=== PATIENT | male | born 1935 | race Caucasian/White ===

== ENCOUNTER 2020-07-09 16:35 | Outpatient (CLI) | payer MEDICARE, SELFPAY | END 2020-07-09 16:36 | disposition home or self-care (01) | PROVIDERS: Visit Provider Specialist | DX: C44.01 Basal cell carcinoma of skin of lip (principal) | CPT/HCPCS: 88305 ==

== ENCOUNTER 2020-11-05 11:59 | Outpatient (CLI) | payer MEDICARE, SELFPAY | END 2020-11-05 12:00 | disposition home or self-care (01) | LOC: CHSLAB 12:03 | PROVIDERS: PCP Specialist; Visit Provider Specialist | DX: C44.41 Basal cell carcinoma of skin of scalp and neck (principal); C44.519 Basal cell carcinoma of skin of other part of trunk; L82.1 Other seborrheic keratosis | CPT/HCPCS: 88305 ==

== ENCOUNTER 2021-10-14 15:48 | Outpatient (CLI) | payer MEDICARE, SELFPAY | END 2021-10-14 15:49 | disposition home or self-care (01) | LOC: CHSLAB 15:51 | PROVIDERS: PCP Internal Medicine; Visit Provider Specialist | DX: C44.519 Basal cell carcinoma of skin of other part of trunk (principal); C44.321 Squamous cell carcinoma of skin of nose | CPT/HCPCS: 88305 ==

== ENCOUNTER 2024-09-12 12:29 | Outpatient (CLI) | payer MEDICARE, SELFPAY ==
--- OUTSIDE RECORDS SUMMARY | 2024-09-12 12:38 | XMS_ITS ---
Author Organization Unknown Address [address] [place] [phone] Phone Care Team Providers Care Journal Box Inspector Name Role Phone BERNADINE MITCHELL Cornell Attending Unavailable Immunization Immunization Date Status Additional Notes Code Code System pneumococcal polysaccharide PPV23 02/13/2017 Completed 33 CVX Tdap 04/05/2015 Completed 115 CVX Pneumococcal conjugate PCV 13 02/05/2016 Completed 133 CVX Influenza, high-dose, trivalent, PF 02/05/2016 Completed 135 CVX Influenza, high-dose, trivalent, PF 02/13/2017 Completed 135 CVX Influenza, high-dose, trivalent, PF 03/15/2018 Completed 135 CVX Influenza, high-dose, trivalent, PF 04/15/2019 Completed 135 CVX Influenza, split virus, trivalent, preservative 02/16/2013 Completed 141 CVX Influenza, split virus, trivalent, preservative 01/14/2014 Completed 141 CVX Influenza, split virus, trivalent, preservative 02/14/2015 Completed 141 CVX Influenza, split virus, quadrivalent, PF 05/23/2021 Completed 150 CVX Influenza, recombinant, quadrivalent, PF 03/14/2023 Completed 185 CVX Influenza, high-dose, quadrivalent, PF 03/03/2020 Completed 197 CVX Influenza, high-dose, quadrivalent, PF 03/05/2022 Completed 197 CVX COVID-19, mRNA, LNP-S, PF, 1 00 mcg/0.5mL dose or 50 mcg/0.25mL dose 08/02/2020 Completed 207 CVX Results CBC W/ DIFF - Collect Date/T shae: 06/18/2023 07:43 [facility] ID: [id number] [id number] [place], [place], [id number] LOINC: 18681-8 Test Value Unit Reference Range Code Code System Flag WBC 5.7 10^3uL L=4.8 H=10.8 RBC 4.12 10^6uL L=4.60 H=6.20 L HEMOGLOBIN 12.7 g/dL L=14.0 H=18.0 718-7 LOINC L HEMATOCRIT 38.0 VOL% L=42.0 H=52.0 4544-3 LOINC L MCV 92.2 fL L=80.0 H=94.0 MCH 30.8 pg L=27.0 H=32.0 MCHC 33.4 g/dL L=32.0 H=36.0 PLATELETS 193 10^3uL L=100 H=400 08339-3 LOINC RDW 13.9 % L=11.7 H=15.5 %GRAN 62.8 % L=40.0 H=70.0 46971-9 LOINC %LYMPH 25.7 % L=20.0 H=45.0 736-9 LOINC %MONO 8.3 % L=2.0 H=10.0 28512-1 LOINC %EOS 1.9 % L=0.0 H=6.0 713-8 LOINC %BASO 0.9 % L=0.0 H=3.0 706-2 LOINC #NEUT 3.6 10^3uL L=1.9 H=7.6 87015-8 LOINC #LYMPH 1.5 10^3uL L=0.9 H=4.9 99716-5 LOINC #MONO 0.5 10^3uL L=0.1 H=0.9 57038-7 LOINC #EOS 0.1 10^3uL L=0.0 H=0.6 712-0 LOINC #BASO 0.05 10^3uL L=0.00 H=0.10 17276-5 LOINC #IM GRANS 0.0 10^3uL L=0.0 H=7.0 78928-3 LOINC %IM GRANS 0.4 % L=0.0 H=5.0 65744-3 LOINC %NRB 0.0 L=0.0 H=0.2 93468-7 LOINC #NRB 0.000 L=0.000 H=0.012 13735-9 LOINC MANUAL DIFF NOT INDICATED RBC MORPH NOT INDICATED LIPID PANEL - Collect Date/T shae: 06/18/2023 07:43 [facility] ID: [id number] [place], [id number] LOINC: 81622-2 Test Value Unit Reference Range Code Code System Flag FASTING YES CHOLESTEROL 154 mg/dL L=0 H=200 2092-3 LOINC TRIGLYCERIDE 69 mg/dL L=0 H=150 2570-8 LOINC HDL 50 mg/dL L=40 H=60 2084-9 LOINC LDL 84 mg/dL 2088-05 LOINC COMPREHENSIVE METABOLIC PANE L - Collect Date/Time: 06/18/2023 07:43 [facility] ID: [id number] [place], [place], [id number] LOINC: 23190-4 Test Value Unit Reference Range Code Code System Flag FASTING YES BUN 12 mg/dL L=7 H=20 3094-0 LOINC CREATININE 1.40 mg/dL L=0.66 H=1.25 2160-0 LOINC H GLUCOSE 91 mg/dL L=74 H=106 2345-7 LOINC SODIUM 143 mmol/L L=132 H=144 2951-2 LOINC POTASSIUM 4.0 mmol/L L=3.5 H=5.1 2823-3 LOINC CHLORIDE 112 mmol/L L=98 H=107 2075-0 LOINC H CO2 22.0 mmol/L L=22.0 H=30.0 8-9 LOINC ANION GAP 13 L=10 H=20 08335-8 LOINC OSMOLALITY 295 mOs/kG L=280 H=296 59626-5 LOINC BUN/CREAT 8.6 3097-3 LOINC CALCIUM 8.8 mg/dL L=8.3 H=10.5 35716-9 LOINC AST 18 U/L L=15 H=46 1920-8 LOINC ALT 13 U/L L=9 H=72 1742-6 LOINC ALKALINE PHOS 60 U/L L=38 H=126 6768-6 LOINC TOTAL BILI 0.7 mg/dL L=0.2 H=1.3 1975-2 LOINC ALBUMIN 3.8 G/dL L=3.5 H=5.0 1751-7 LOINC TOTAL PROTEIN 6.4 g/L L=6.3 H=8.2 2885-2 LOINC A/G RATIO 1.5 88136-7 LOINC AGE 87 60905-0 LOINC eGFR NON-AFR 51 ml/min eGFR AFR AMER 62 ml/min URINALYSIS w/Microscopy - Co llect Date/Time: 06/18/2023 07:00 [facility] ID: [id number] [place], [place], [id number] LOINC: 88010-8 Test Value Unit Reference Range Code Code System Flag UR SOURCE CLEAN CATCH 09712-0 LOINC COLOR YELLOW YELLOW 5778-6 LOINC CLARITY SL CLOUDY CLEAR 22174-4 LOINC SPEC GRAVITY >=1.030 1.000-1.030 5811-5 LOINC A PH 5.5 5.0 - 6.5 5803-2 LOINC LEUK EST NEGATIVE NEGATIVE 5799-2 LOINC NITRATE NEGATIVE NEGATIVE PROTEIN NEGATIVE NEGATIVE 5804-0 LOINC GLUCOSE NEGATIVE NEGATIVE 33974-4 LOINC KETONES NEGATIVE NEGATIVE 35593-5 LOINC UROBILINOGEN 1.0 NEGATIVE 5818-0 LOINC BILIRUBIN NEGATIVE NEGATIVE 42004-6 LOINC BLOOD NEGATIVE NEGATIVE 72546-6 LOINC WBC 0-2 0 - 2 43342-6 LOINC RBC 0-2 0 - 2 96217-0 LOINC EPITHELIAL RARE RARE-FEW 14140-7 LOINC BACTERIA FEW NONE SEEN 52100-9 LOINC MUCUS 2+ NONE SEEN 8247-9 LOINC A YEAST NOT PRESENT NOT PRESENT 21312-7 LOINC CASTS SEE BELOW 62972-5 LOINC CRYSTALS NONE SEEN 95789-7 LOINC Social History Type Status Start Date End Date Code Code Syst em Smoking History Never smoker (Never Smoked) 388192384 SNOMED CT Sex Male Hospital Discharge Instructions Should you have any questions prior to discharge, please contact a member of your healthcare team. If you have left the hospital and have any questions, please contact your primary care physician. Reason For Referral No Data Found Allergies and Adverse Reactions Allergy Substance Reaction Severity Start Date Concern Status Co de Code System No Known Drug Allergies Active 833557443 SNOMED-CT Plan of Treatment US Ankle/Brachial Indices (94142) 06/07 Encounters Encounter Diagnosis Start Date Code Code Sys tem Essential (primary) hypertension 06/18/2023 SNOMED-CT Personal Care Team Section Performer Name Performer Role Active Date Inactive Da te MITCHELL COLINDRES PCP - Primary care physician 2020-12-26 MITCHELL COLINDRES PCP - Primary care physician 2020-12-26
--- OUTSIDE RECORDS SUMMARY | 2024-09-12 12:38 | XMS_ITS | Encounter Summary ---
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
--- OUTSIDE RECORDS SUMMARY | 2024-09-12 12:38 | XMS_ITS | Clinical Summary ---
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 Gender Identity Not on file Sexual Orientation Not on file Plan of Treatment Health Maintenance Due Date Last Done Comments Zoster Vaccines (1 of 2) 09/17/1987 Annual Medicare Wellness Visit 2002 RSV Immunization or 60+ Years (1 - 1-dose 75+ series) 2012 COVID-19 Vaccine (2 - 2023-2 5 season) 2024 08/02/2020 DTaP, Tdap and Td Vaccines ( 2 - Td or Tdap) 04/05/2025 04/05/2015 Pneumococcal Vaccine: 50+ Years Completed 02/13/2017, 02/05/2016 Meningococcal B Vaccine Aged Out No l onger eligible based on patient's age to complete this topic Meningococcal Vaccine Aged Out No mague tammy eligible based on patient's age to complete this topic RSV Immunizations Under 20 Months Aged Out No longer eligible b ased on patient's age to complete this topic Insurance MEDICARE GENERIC - COMMERCIAL Care Teams Carpenter Supervisor Wooden Ship Relationship Specialty Start Date End Date April Albright MD [address] [place] [address] PCP - General INTERNAL MEDICINE 09/16/21
--- OUTSIDE RECORDS SUMMARY | 2024-09-12 12:38 | XMS_ITS ---
Author Organization Unknown Address [address] [place] [phone] Phone Care Team Providers Care Research Program Manager Name Role Phone BERNADINE CASTILLOA Cornell Attending Unavailable Immunization Immunization Date Status [...] mcg/0.25mL dose 08/02/2020 Completed 207 CVX Results US ARTERIAL LE BILATERAL - C ompleted: 06/07/2023 08:48 LOINC: EXAM DESCRIPTION: US ARTERIAL LE BILATERAL REASON FOR STUDY: None TECHNIQUE: Spectral analysis of the lower extremity arteries. ABIs recorded. COMPARISON: None FINDINGS: Segmental pressures on the right are as follows: Brachial Artery: 150 mm Hg. Common Femoral Artery: 203 mm Hg. Artifact, monophasic waveform. Superficial Femoral Artery: 171 mm Hg. Artifact, monophasic waveform. Popliteal Artery: 221 mm Hg. Biphasic to triphasic waveform. Posterior Tibial Artery: 221 mm Hg. Biphasic to triphasic waveform. Dorsalis Pedis Artery: 155 mm Hg. Artifact, monophasic waveform. CAM is 1.19. Toe Artery: 78 mm Hg. Normal waveform. TBI is 0.52. Segmental pressures on the left are as follows: Brachial Artery: 147 mm Hg. Common Femoral Artery: 235 mm Hg. Biphasic to triphasic waveform. Superficial Femoral Artery: 191 mm Hg. Artifact, likely triphasic waveform. Popliteal Artery: 199 mm Hg. Artifact, triphasic waveform. Posterior Tibial Artery: 183 mm Hg. Triphasic waveform. Dorsalis Pedis artery: 161 mm Hg. Artifact waveform. CAM is 1.22. Toe Artery: 107 mm Hg. Normal waveform. TBI is 0.71. IMPRESSION: 1. Right lower extremity: CAM is within normal limits. 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 2. Left lower extremity: CAM/TBI are within normal limits. THIS IS AN ELECTRONICALLY VERIFIED FINAL REPORT 06/08/2023 9:21 AM - Electronically signed by Kane Cabello M.D. AG: ELIUD Report ID: [id number] Reading Location: [place] [address] Social History Type Status Start Date End Date Code Code Syst em Smoking History Never smoker (Never Smoked) [id number] [facility] Sex Male Hospital Discharge Instructions Should [...] Code System No Known Drug Allergies Active [id number] SNFOODit-CT Plan of Treatment US Ankle/Brachial Indices (55427) 06/07 Encounters Encounter Diagnosis Start Date Code Code Sys tem Respiratory finding 06/07/2023 [id number] SNOMED-C T Personal Care Team Section Performer Name Performer Role Active Date Inactive Da te MITCHELL COLINDRES PCP - Primary care physician 2020-12-26 MITCHELL COLINDRES PCP - Primary care physician 2020-12-26 Imaging Narrative Notes
== END 2024-09-12 12:30 | disposition home or self-care (01) ==
LOC: CHSLAB 12:32
PROVIDERS: PCP Specialist; Visit Provider Specialist
DX: C44.319 Basal cell carcinoma of skin of other parts of face (principal); C44.329 Squamous cell carcinoma of skin of other parts of face
CPT/HCPCS: 88305